=== PATIENT | female | born 1995 | race Caucasian/White ===

== ENCOUNTER 2017-11-13 03:30 | Emergency (ER) | payer BC ==
[2017-11-13 04:05] VITALS: RESP 18; TEMP 99.3; O2SAT 99
[2017-11-13] MEDS ORDERED: Dexamethasone 10 MG in Sodium Chloride 0.9% 50 ML IV STA (04:19)
[2017-11-13] MEDS ORDERED: Sodium Chloride 0.9% 1,000 ML IV STA ×2 (04:19→06:09)
[2017-11-13] MEDS ORDERED: Piperacillin/Tazobact 3.375 GM in Sodium Chloride 0.9% 100 ML IV STA (05:21)
[2017-11-13 05:23] LABS: ALB/GLOB RATIO 1.3 (1.0-2.1); ALBUMIN 4.4 g/dL (3.5-5.0); ALT/SGPT 24 U/L (9-52); AST/SGOT 24 U/L (14-36); BLOOD UREA NITROGEN 8 mg/dl (7-17); CALCIUM 9.4 mg/dL (8.4-10.2); GFR AFRICAN-AMERICAN > 60; GFR NON-AFRICAN AMERICAN > 60
--- NOTE | 2017-11-13 05:37 | ED PDOC ---
HPI: General Adult Time Seen by Provider: 11/13/17 04:14 Chief Complaint (Nursing): Flu-like Symptoms Chief Complaint (Provider): sore throat History Per: Patient History/Exam Limitations: no limitations Onset/Duration Of Symptoms: Days (x2), Worse Since Current Symptoms Are (Timing): Still Present Additional Complaint(s): Joseline Gottlieb, a 27 year old female presents to the Emergency Department complaining of sore throat onset two days ago. She reports the symptoms have become worse. There is a change in her vocal quality, trouble swallowing fluids, vomits, and gauges when drinking fluids. Denies any fever. PMD: Provider TBD Past Medical History Reviewed: Historical Data, Nursing Documentation, Vital Signs Vital Signs: Last Vital Signs Temp 99.3 F 11/13/17 04:01 Pulse 106 H 11/13/17 04:01 Resp 18 11/13/17 04:01 BP Pulse Ox 99 11/13/17 07:01 - Medical History PMH: No Chronic Diseases - Surgical History Surgical History: No Surg Hx - Family History Family History: States: Unknown Family Hx - Immunization History Hx Tetanus Toxoid Vaccination: No Hx Influenza Vaccination: No Hx Pneumococcal Vaccination: No - Home Medications Home Medications: Ambulatory Orders Medication Instructions Recorded Amoxicillin/Clavulanate [Augmentin 1 tab PO BID #14 tab 11/13/17 875 MG-125 MG] Naproxen [Naprosyn] 500 mg PO Q12H PRN 11/13/17 predniSONE [predniSONE Tab] 60 mg PO QAM #12 tab 11/13/17 - Allergies Allergies/Adverse Reactions: Allergies Allergy/AdvReac Type Severity Reaction Status Date / Time No Known Allergies Allergy Verified 11/13/17 04:01 Review of Systems ROS Statement: Except As Marked, All Systems Reviewed And Found Negative Constitutional: Negative for: Fever ENT: Positive for: Throat Pain, Other (change in vocal quality ) Gastrointestinal: Positive for: Vomiting Physical Exam - Reviewed Nursing Documentation Reviewed: Yes Vital Signs Reviewed: Yes - Physical Exam Appears: Positive for: Well, Non-toxic, No Acute Distress Head Exam: Positive for: ATRAUMATIC, NORMAL INSPECTION, NORMOCEPHALIC Skin: Positive for: Normal Color, Warm, Dry Eye Exam: Positive for: Normal appearance ENT: Positive for: Tonsillar Swelling (bilateral 2x enlarged tonsils), Other ( sore throat; bilateral anterior-cervical) Neck: Positive for: Normal, Painless ROM Cardiovascular/Chest: Positive for: Regular Rate, Rhythm, Tachycardia Respiratory: Positive for: Normal Breath Sounds Gastrointestinal/Abdominal: Positive for: Normal Exam Back: Positive for: Normal Inspection Extremity: Positive for: Normal ROM. Negative for: Deformity Neurologic/Psych: Positive for: Alert, Oriented (x3) - Laboratory Results Result Diagrams: 11/13/17 04:57 11/13/17 04:57 - ECG O2 Sat by Pulse Oximetry: 99 (RA) Pulse Ox Interpretation: Normal Medical Decision Making Medical Decision Making: Time: 4:19 Initial Impression: -- 22 y/o female with exacerbate tonsillitis Initial Plan: --CMP --Lact Acid, Plasma --Urine --ED Urine --CBC --Decadron Inj 10mg Sodium Chloride 0.9% 50ml --Normal Saline 1,000ml IV 1,000mls/hr --Toradol 15mg IVP --Zosyn 3.375gm Sodium Chloride 0.9% 100ml --Zofran 4mg IV --Blood Culture --Infectious Mononucleosis --Influenza A B --Rapid Strep group A antigen --Reevaluation Clinical Impression: --strep tonsillitis and mononucleosis Upon provider evaluation patient is medically stable, and requires no further treatment in the ED at this time. Patient will be discharged with Rx for Augment 975mg and predniSONE 60mg. Counseling was provided and all questions were answered regarding diagnosis and need for follow up with PMD. Scribe Attestation: Documented by Jyothi Vanegas, acting as a scribe for Mustapha Qureshi MD Provider Scribe Attestation: All medical record entries made by the Scribe were at my direction and personally dictated by me. I have reviewed the chart and agree that the record accurately reflects my personal performance of the history, physical exam, medical decision making, and the department course for this patient. I have also personally directed, reviewed, and agree with the discharge instructions and disposition. Disposition - Clinical Impression Clinical Impression: Strep tonsillitis, Mononucleosis - Patient ED Disposition Is Patient to be Admitted: No - Disposition Disposition: Routine/Home Disposition Time: 07:00 Condition: STABLE Prescriptions: Amoxicillin/Clavulanate [Augmentin 875 MG-125 MG] 1 tab PO BID #14 tab predniSONE [predniSONE Tab] 60 mg PO QAM #12 tab Instructions: Mononucleosis (ED), Strep Throat (ED), Tonsillitis (ED) Forms: [employer] ([place]i)
[2017-11-13 05:41] LABS: BASO % 0.1 % (0.0-2.0); EOS % 0.1 % (0.0-4.0); LYMPH # 1.2 K/uL (1.0-4.3); LYMPH % 6.8 % (20.0-40.0); MEAN CORPUSCULAR HEMOGLOBIN 26.7 pg (27.0-31.0); MEAN CORPUSCULAR HGB CONC 31.7 g/dL (33.0-37.0); MEAN PLATELET VOLUME 10.4 fl (7.2-11.7); MONO # 1.9 K/uL (0.0-0.8); MONO % 10.3 % (0.0-10.0); NEUT # 14.8 K/uL (1.8-7.0); NEUT % 82.7 % (50.0-75.0); NRBC % 0.1 % (0.0-0.0); PLATELET COUNT 181 K/uL (130-400); RBC 4.52 Mil/uL (3.80-5.20); WHITE BLOOD COUNT 17.9 K/uL (4.8-10.8)
[2017-11-13] MEDS ORDERED: Iohexol 300 100 ML IJ ONE (06:13)
[2017-11-13] MEDS ORDERED: Sodium Chloride 0.9% 50 ML IV ONE (06:14)
[2017-11-13 08:55] VITALS: BP 118/70; PULSE 88
[2017-11-13 10:24] LABS: ANISOCYTOSIS SLIGHT; LYMPHOCYTE 8 % (20-50); MONOCYTE 6 % (0-10); NEUTROPHIL 86 % (42-75); OVALOCYTES SLIGHT; PLATELET ESTIMATE NORMAL (NORMAL); TOTAL CELLS COUNTED 100
[2017-11-13 10:25] LABS: LARGE PLATELETS PRESENT; TEARDROP CELLS SLIGHT
--- NOTE | 2017-11-13 14:38 | CT ---
PROCEDURE: CT scan neck dated 11/13/2017 HISTORY: Sore throat COMPARISON: No prior TECHNIQUE: Contiguous helical/ transaxial sections of the neck with intravenous contrast. Coronal and sagittal reformats generated. Intravenous contrast dose: 80 cc of Omnipaque 300 contrast material. Radiation dose: DLP 520.34 mGy-cm This CT exam was performed using one or more of the following dose reduction techniques: Automated exposure control, adjustment of the mA and/or kV according to patient size, and/or use of iterative reconstruction technique FINDINGS: The current study reveals enlargement of the adenoids and palatine tonsils. The the palatine tonsils encroach anteromedially at and reduce the megan pharyngeal airway (kissing tonsils). Mally is at most likely represent postinflammatory tonsillitis and adenoiditis. There are no discrete fluid collections seen to suggest peritonsillar abscess formation. Due to swallowing artifact, the vallecular, free margin of the epiglottis and aryepiglottic folds as well as pyriform sinuses are obscured. The true vocal cords appear relatively symmetric. The remaining airway is patent throughout. Parotid and submandibular glands are unremarkable without masses collections or calcifications. . Thyroid gland appears normal in size without low-attenuation lesions or calcifications. The visualized cervical arterial vasculature unremarkable. Jugular veins patent, right-sided which is slightly larger/more dominant in caliber than the left. There are multiple small to medium-sized nonspecific bilateral cervical lymph nodes. Lung apices clear The minimal reversal of the normal cervical lordosis possibly due to patient positioning in the gantry however underlying element of muscle spasm not excluded IMPRESSION: There is enlargement of the adenoids and palatine tonsils (kissing tonsils). Findings consistent with inflammatory process, tonsillitis and adenoiditis. . No evidence of peritonsillar abscess formation. Multiple small to medium sized bilateral cervical lymph nodes.
== END 2017-11-13 08:10 | disposition home or self-care (01) ==
LOC: H.ER 03:30
DX: B27.90 Infectious mononucleosis, unspecified without complication (principal); J03.90 Acute tonsillitis, unspecified; J03.00 Acute streptococcal tonsillitis, unspecified; R13.10 Dysphagia, unspecified
CPT/HCPCS: 70491; 80053; 81025; 83605; 85025; 86308; 87040; 87430; 87804; 96361; 96365; 96367; 96375; 99284; J1100; J1885; J2405; J2543; J7040; Q9967